=== PATIENT | female | born 1985 | race Caucasian/White ===

== ENCOUNTER → 2023-04-16 15:43 | Outpatient (CLI) | payer BC, SELFPAY ==
--- NOTE | ~2023-04-16 | XR_ITS ---
XR foot LT min 3V DATE: 04/16/2023 16:09 INDICATION: Left foot pain TECHNIQUE: 4 views COMPARISON: None FINDINGS: Mild osteoarthritis at the first metatarsophalangeal and some interphalangeal joints. Secon d through fifth hammertoe deformities. No fracture or dislocation, periosteal reaction or bone destru ction. Mild posterior calcaneal enthesopathy. IMPRESSION: Mild osteoarthritis Hammertoe deformities Mild posterior calcaneal spurring Reviewed, dictated and finalized at location L. SER ALL AROUND
== END ==
PROVIDERS: PCP Family Medicine; Visit Provider Family Medicine
DX: M19.072 Primary osteoarthritis, left ankle and foot (principal); M77.32 Calcaneal spur, left foot
CPT/HCPCS: 73630

== ENCOUNTER 2024-03-03 10:17 | Outpatient (CLI) | payer BC, SELFPAY ==
--- NOTE | ~2024-03-03 | MR_ITS ---
EXAMINATION: MR foot LT wo con DATE: 03/03/2024 10:57 INDICATION: Left foot pain. TECHNIQUE: Magnetic resonance imaging (MRI) of the left foot was performed without intravenous contra st. COMPARISON: Left foot radiographs 04/16/2023 FINDINGS: Alignment is normal. No fracture. There is mild osteoarthritis of first metatarsophalangeal joint. There is a skin marker dorsal to the Lisfranc joint. The Lisfranc ligament is normal. There i s a 17 x 5 x 5 mm ganglion cyst dorsal to the base of third metatarsal that likely arises from the th ird tarsometatarsal joint. The extensor and flexor tendons are normal. IMPRESSION: 1. 17 mm ganglion cyst dorsal to base of third metatarsal arising from the third tarsometatarsal join t. Reviewed, dictated and finalized at location A. [employer] IMPRESSION: 1. 17 mm ganglion cyst dorsal to base of third metatarsal arising from the thir d tarsometatarsal joint.
== END 2024-03-03 10:18 | disposition home or self-care (01) ==
PROVIDERS: PCP Family Medicine; Visit Provider Family Medicine
DX: M79.672 Pain in left foot (principal)
CPT/HCPCS: 73718

== ENCOUNTER 2024-07-21 08:23 | Outpatient (CLI) | payer BC, SELFPAY ==
--- NOTE | ~2024-07-21 | XR_ITS ---
Left foot Technique: AP, oblique, and lateral views were obtained. Clinical History: Pain and swelling Findings: No acute fracture or dislocation is seen. Osseous alignment is anatomic. Joint spaces are p reserved without erosive or degenerative change. Soft tissues are unremarkable. Impression: Unremarkable left foot radiographs. Reviewed, dictated and finalized at [facility]. Impression: Unremarkable left foot radiographs.
== END 2024-07-21 08:24 | disposition home or self-care (01) ==
LOC: MICIMG 08:25
PROVIDERS: PCP Family Medicine; Visit Provider Pediatrics
DX: M79.89 Other specified soft tissue disorders (principal); M79.672 Pain in left foot
CPT/HCPCS: 73630

== ENCOUNTER 2025-01-16 07:55 | Outpatient (CLI) | payer BC, SELFPAY ==
--- NOTE | ~2025-01-16 | US_ITS ---
Examination: US abdomen complete Clinical History: RUQ abd pain . Comparison: None Technique: Complete abdominal sonography Findings: Liver: Normal size. Normal echotexture. No intrahepatic biliary ductal dilatation. Normal hepatopedal flow main portal vein. Common duct: Normal caliber, 2 mm. Gallbladder: Stones. No wall thickening. No pericholecystic fluid. Negative sonographic De La Torre's sign per technologist report. Spleen: Unremarkable. Pancreas: Unremarkable. Kidneys: Unremarkable. Aorta: No aneurysmal dilatation. Retrohepatic IVC: Unremarkable. IMPRESSION: 1. Gallstones. No evidence of acute cholecystitis. 2. Otherwise no acute abnormality. Reviewed, dictated and finalized at location R.
== END 2025-01-16 07:56 | disposition home or self-care (01) ==
LOC: MICIMG 07:56
PROVIDERS: PCP Family Medicine; Visit Provider Student in an Organized Health Care Education/Training Program
DX: R10.11 Right upper quadrant pain (principal); K80.20 Calculus of gallbladder without cholecystitis without obstruction
CPT/HCPCS: 76700